=== PATIENT | male | born 1935 | race Caucasian/White ===

== ENCOUNTER → 2016-10-08 | Outpatient (CLI) | payer MEDICARE, OTHER ==
[~2016-10-08] MED LIST: ALBUTEROL17 GM INH; ATORVASTATIN CA80 MG PO; CLOPIDOGREL75 MG PO; LIPITOR PO; LIPITOR80 MG PO; PLAVIX PO; PREDNISONE PO; VIBRAMYCIN100 M1 PO
--- NOTE | ~2016-10-08 | MR151 ---
[facility] A Service of [facility] & [facility] RADIOLOGY TEXT RESULTS PATIENT: ELLEN ABARCA [facility] UNIT #: [id number] AGE: [address]: Riley Lima MD SEX: M ORDER DR: [id number] [facility] [address] [place], [place] [address] [id number] O MR#: [id number] Acc #: [id number] NAME: ELLEN ABARCA : 1935 SEX: M STUDY DATE/TIME: 10/08/2016 9:09 UNIT: [facility] ROOM: STUDY DESCRIPTION: MR Pelvis WWo Contrast Attending Physician: Riley Lima M.D. Referring Physician: Riley Lima M.D. Ordering Physician: Riley Lima M.D. Primary Care Physician: Angel Welch M.D. MRI CENTER REPORT This report is preliminary unless electronic signature is present. EXAM MRI pelvis with and without contrast INDICATIONS Restaging rectal cancer. PROCEDURE Multiplanar, multisequence MR imaging of the pelvis prior to and following 15 mL of MultiHance. COMPARISON 04/14/2016 FINDINGS PELVIS WITHOUT CONTRAST: Redemonstration of the patient's tumor along the posterior rectum. It measures 1.5 x 0.8 cm and is stable from the previous study. It is significantly improved compared with a 10/25/2014 study. There is mild thickening in the rectum, somewhat improved from the most recent comparison study, favored to represent changes of radiation therapy. There are no abnormal lymph nodes seen in the mesorectal fat. No pelvic adenopathy elsewhere. No aggressive appearing bone lesion. The bladder, prostate gland, seminal vesicles have normal signal. No pelvic fluid. PELVIS WITH CONTRAST: There is mild enhancement in the presacral soft tissues and in the sacrum. This is stable from the previous study and is most in keeping with postradiation change. IMPRESSION 1. No significant change in the appearance of the patient's rectal tumor since the 04/14/2016 study. Again it shows very low T2 signal intensity and favored to represent post-treatment change. Overall STS. [facility] A Service of [facility] & [facility] RADIOLOGY TEXT RESULTS PATIENT: ELLEN ABARCA LOCATION: [facility] : 34 UNIT #: [id number] AGE: [address]: Riley Lima MD SEX: M ORDER DR: tumor is significantly improved compared with the 10/25/2014 study. 2. There are no abnormally enlarged lymph nodes in the mesorectal fat or elsewhere in the pelvis. Dictated by... Jamir Florez M.D. THIS IS AN ELECTRONICALLY VERIFIED REPORT Jamir Florez M.D. at 10/09/2016 7:05 AM SEAMUS/kimberly TD: 10/08/2016 18:26 JOB #: [id number] MRI CENTER REPORT COPY
[2016-10-08 09:10] LABS: POC - CREATININE 1.12 mg/dL (0.64-1.27); POC - GFR >60.0 mL/min (>60)
== END | disposition home or self-care (01) ==
LOC: CMRI 08:34
PROVIDERS: Internal Medicine Medical Oncology
DX: C20 Malignant neoplasm of rectum (principal)
CPT/HCPCS: 72197; 82565; A9577

== ENCOUNTER → 2017-01-29 | Day surgery (SDC) | payer MEDICARE, OTHER ==
--- NOTE | ~2017-01-29 | OR ---
Unit #: [id number] #: [id number] Patient: ELLEN ABARCA [id number] [address] [address] [id number] O MR#: [id number] NAME: ELLEN ABARCA. ROOM: Date of Procedure: 01/29/2017 Admission Date: 01/29/2017 Surgeon: Raul Mi M.D. : 1935 Attending Physician: Raul Mi M.D. Primary Care Physician: Angel Welch M.D. OPERATIVE REPORT PREOPERATIVE DIAGNOSES 1. History of rectal cancer (status post radiation and chemotherapy). 2. Intermittent rectal bleeding. POSTOPERATIVE DIAGNOSES 1. History of rectal cancer (status post radiation and chemotherapy). 2. Intermittent rectal bleeding. PROCEDURES PERFORMED 1. Colonoscopy to cecum. 2. Polypectomy with electrocautery snare of sessile neoplasm of proximal ascending colon with submucosal tattoo. 3. Polypectomy with electrocautery snare of 5 mm polyp hepatic flexure. 4. Polypectomy with electrocautery snare of 2 to 3 cm sessile neoplasm proximal transverse colon with hemoclip placement and submucosal tattoo. 5. Polypectomy of 5 mm polyp at 50 cm with electrocautery snare. 6. Polypectomy with electrocautery snare at 40 cm of 5 mm polyp. ANESTHESIA Monitored anesthesia care. FINDINGS The patient had no evidence of recurrence of his rectal cancer. There were post radiation changes in the rectum. A 2 to 3 cm sessile neoplasm was partially removed and biopsied from the proximal ascending colon. The area was tattooed. There was good hemostasis. A 5 mm polyp was removed from the hepatic flexure with electrocautery snare with good hemostasis and very close by with 2 to 3 cm sessile neoplasm running along a fold that had the majority excised with electrocautery snare and hemoclip placement and submucosal tattooing all with good hemostasis. An additional 5 mm polyp was excised at 50 cm and 40 cm with good hemostasis, retrieved and sent to Pathology. SPECIMENS Sent to Pathology. COMPLICATIONS None apparent. CONDITION The patient tolerated the procedure well. Unit #: [id number] #: [id number] Patient: ELLEN ABARCA INDICATIONS FOR PROCEDURE The patient is an 79-year-old white male, who has a history of rectal cancer. He responded well to radiation therapy and chemotherapy. He has had some intermittent rectal bleeding and he presents at this time for evaluation by colonoscopy. DESCRIPTION OF PROCEDURE After obtaining informed consent, the patient was brought to the endoscopy suite and after adequate monitored anesthesia care, had digital examination performed. No palpable masses were present. The patient had good sphincter tone. The colonoscope was placed through the anus and slowly advanced to the level of the cecum without difficulty with the lumen always in view. The cecum was normal as was the ileocecal valve. In the proximal ascending colon, 8 to 10 cm beyond the cecum, there was a sessile neoplasm 2 to 3 cm in size running along the front and back of the fold. It was partially excised with electrocautery snare with good hemostasis. It could not be completely removed due to its positioning. Multiple biopsies were obtained as well with good hemostasis and the area was submucosally tattooed. The remaining portion of the ascending colon was normal. In the hepatic flexure, there was a 5 mm polyp found. It was excised completely with electrocautery snare, retrieved with a mucus trap, and sent to Pathology. There was good hemostasis. Very close by, there was another 2 to 3 cm sessile neoplasm present running along the fold. The majority was excised with electrocautery snare with good hemostasis. It was sent to Pathology. Hemoclips were placed to ensure good hemostasis, submucosal approximation, and the area was submucosally tattooed. The remaining portion of the transverse colon was normal as was the splenic flexure and proximal descending colon. At 50 cm, a 5 mm polyp was excised with electrocautery snare with good hemostasis, retrieved and sent to Pathology. At 40 cm, a similar polyp was excised with an electrocautery snare with good hemostasis, retrieved and sent to Pathology. No diverticula were seen. The remaining portion of the sigmoid colon, rectosigmoid, and rectum were all within normal limits. We were unable to retroflex in the rectum to the anorectal junction. Over the last 10 to 12 cm, there was no evidence of recurrence of the rectal cancer. There were postradiation therapy changes to the rectum with some telangiectasia present. On pulling back through, this abnormality extended to the anal verge. The scope was removed without difficulty. The patient tolerated the procedure well and went from the endoscopy suite to recovery area in stable condition. RECOMMENDATIONS High-fiber diet, lots of liquids, tucks or wipes p.r.n. Call Thursday for path report. Dictated by... Joss De Santiago/angelica TD: 01/29/2017 14:07 JOB #: [id number] CC: Joss Stone M.D. [facility] Angel Arboleda M.D. Unit #: [id number] #: [id number] Patient: ELLEN ABARCA OPERATIVE REPORT Page 1 of 1 X Raul Mi MD X PROCEDURE OPERATIVE NOTE
== END | disposition home or self-care (01) ==
LOC: COPS 11:43
DX: D12.2 Benign neoplasm of ascending colon (principal); D12.4 Benign neoplasm of descending colon; D12.3 Benign neoplasm of transverse colon; Z85.048 Personal history of other malignant neoplasm of rectum, rectosigmoid junction, and anus; K62.5 Hemorrhage of anus and rectum; Z92.3 Personal history of irradiation; Z92.21 Personal history of antineoplastic chemotherapy
CPT/HCPCS: 88305

== ENCOUNTER → 2017-04-06 | Outpatient (CLI) | payer MEDICARE, OTHER ==
--- NOTE | ~2017-04-06 | MR151 ---
[facility] A Service of [facility] & [facility] RADIOLOGY TEXT RESULTS PATIENT: ELLEN ABARCA LOCATION: [facility] : 34 UNIT #: [id number] AGE: [address]: Riley Lima MD SEX: M ORDER DR: [id number] [facility] [address] [place], [place] [address] [id number] O MR#: [id number] Acc #: [id number] NAME: ELLEN ABARCA : 1935 SEX: M STUDY DATE/TIME: 04/06/2017 9:37 UNIT: [facility] ROOM: STUDY DESCRIPTION: MR Pelvis WWo Contrast Attending Physician: Riley Lima M.D. Referring Physician: Riley Lima M.D. Ordering Physician: Riley Lima M.D. Primary Care Physician: Angel Welch M.D. MRI CENTER REPORT This report is preliminary unless electronic signature is present. EXAM MR pelvis. INDICATIONS Rectal cancer. MRI restaging. Intermittent rectal bleeding for 2-3 months. TECHNIQUE Multiplanar MRI of the pelvis with and without IV contrast (14 mL MultiHance IV contrast). COMPARISON MR pelvis 10/08/2016. FINDINGS Patient has a known mid to rectal carcinoma. There is an area of decreased T2 signal along the posterior wall of the mid rectum, approximately 6-7 centimeters from the anorectal junction. This area measures 1.5 x 0.8 cm compared to 1.5 x 0.8 cm on the prior study. There is some desmoplastic reaction within the mesial rectal fat, unchanged. CRN minus. No pathologically enlarged mesial rectal lymph nodes. There is mild circumferential thickening of the rectum which is likely due to postradiation change. No new focal lesions are identified. There is some enhancement in the presacral fat presumably due to postradiation change. No enlarged pelvic or inguinal lymph nodes. Pelvic vasculature is patent. There is mild ectasia of the common iliac arteries measuring 1.6 cm on the right, 1.4 cm on the left. IMPRESSION 1. No evidence of recurrent or metastatic disease in the pelvis. 2. Signal abnormality in the mid rectum compatible with the patient's treated focus of rectal carcinoma. This area is unchanged from the [facility] A Service of [facility] RADIOLOGY TEXT RESULTS PATIENT: ELLEN ABARCA [facility] UNIT #: [id number] AGE: [address]: Riley Lima MD SEX: M ORDER DR: patient's prior study and most consistent with treated disease. Dictated by... Chris Holland M.D. THIS IS AN ELECTRONICALLY VERIFIED REPORT Chris Holland M.D. at 04/07/2017 11:40 AM EVAN/cj TD: 04/07/2017 08:09 JOB #: [id number] MRI CENTER REPORT Page 1 of 1 COPY
[2017-04-06 11:01] LABS: POC - CREATININE 1.42 mg/dL (0.64-1.27)
== END | disposition home or self-care (01) ==
LOC: CMRI 09:00
PROVIDERS: Internal Medicine Medical Oncology
DX: C20 Malignant neoplasm of rectum (principal)
CPT/HCPCS: 72197; 82565; A9577